=== PATIENT | female | born 1985 | race Caucasian/White ===

== ENCOUNTER 2021-03-04 01:00 | Emergency (ER) | payer MEDICAID ==
[~2021-03-04] VITALS: Ht 157.5 cm; Wt 76.2 kg
--- NOTE | 2021-03-04 01:32 | NUR ---
called from tent for triage. no answer. no patients in tent area. will attempt to call again.
[2021-03-04 01:45] VITALS: BP_SYST 121
--- NOTE | 2021-03-04 02:00 | NUR ---
Patient to [facility] for evaluation. Side rails up.
--- NOTE | 2021-03-04 02:05 | NUR ---
Dr. Franklin bedside for pt eval
[2021-03-04] MEDS ORDERED: ALBU8.5H8 INH (02:52)
[2021-03-04] MEDS ORDERED: MED4 PO (02:52)
[2021-03-04 03:05] VITALS: BP_SYST 121
--- NOTE | 2021-03-04 03:05 | NUR ---
Patient given written and verbal discharge instructions and verbalizes understanding. ER MD discussed with patient the results and treatment provided. Patient in stable condition. ID arm band removed. Rx of ProAir, and Medrol given. Patient educated on pain management and to follow up with PMD. Pain Scale 0/10 Opportunity for questions provided and answered. Medication side effect fact sheet provided.
== END 2021-03-04 03:05 | disposition home or self-care (01) ==
LOC: SED 01:00
DX: J45.909 Unspecified asthma, uncomplicated (principal); Z79.899 Other long term (current) drug therapy
CPT/HCPCS: 71045; 99283